=== PATIENT | female | born 1950 | race Caucasian/White ===

== ENCOUNTER 2021-06-11 02:04 | Inpatient (IN) | payer OTHER, SELFPAY ==
[2021-06-11] VITALS (7 sets, daily range): BP systolic 138–169
[~2021-06-11] VITALS: Ht 170.2 cm; Wt 64.9 kg
--- NOTE | 2021-06-11 02:24 | NUR ---
Patient to ER bed 7 to gown for evaluation. Side rails up.
[2021-06-11] MEDS ORDERED: NACL 0.9% 1,000 ML IV ONE (02:30)
--- NOTE | 2021-06-11 02:30 | NUR ---
PATIENT AAOX4 AND AMBULATORY FROM HOME C/O LEFT LOWER ABDOMINAL PAIN WITH CONSTIPATION X 5 DAYS. PATIENT C/O NAUSEA/VOMITING X3 WEB EDITOR. CURRENTLY RAITING 8/10 ON THE PAIN SCALE. VSS. HISTORY OF ARTHRITIS. NO SOB OR CHEST PAIN.
--- NOTE | 2021-06-11 02:32 | NUR ---
ER Dr. GUERIN at bedside examining patient.
[2021-06-11] MEDS ORDERED: ONDANSETRON HCL 4 MG/2 ML VIAL IVP ONE ×2 (02:45→18:50)
[2021-06-11] MEDS ORDERED: KETOROLAC TROMETHAMINE 30 MG VIAL IVP ONE (02:45)
[2021-06-11 03:06] LABS: BASOPHILS # (AUTO) 0.1 K/uL (0.0-0.2); BASOPHILS % (AUTO) 0.6 % (0.0-2.0); EOSINOPHILS # (AUTO) 0.1 K/uL (0.0-0.4); EOSINOPHILS % (AUTO) 1.1 % (0.0-4.0); HEMATOCRIT 42.7 % (36-48); HEMOGLOBIN 14.1 g/dL (12.0-16.0); LYMPHOCYTES % (AUTO) 9.4 % (20.5-51.5); MEAN CORPUSCULAR HEMOGLOBIN 29 pg (27-31); MEAN CORPUSCULAR HGB CONC 33 % (32-36); MEAN CORPUSCULAR VOLUME 88 fL (79.0-98.0); MONOCYTES # (AUTO) 0.6 K/uL (0.0-1.0); MONOCYTES % (AUTO) 5.6 % (1.7-9.3); NEUTROPHILS % (AUTO) 83.3 % (40.0-70.0); PLATELET COUNT (AUTO) 301 K/uL (130-430); RED BLOOD CELL COUNT(AUTO) 4.87 MIL/uL (4.2-6.2); RED CELL DISTRIBUTION WIDTH 13.8 % (9.0-15.0); WHITE BLOOD COUNT (AUTO) 10.9 K/uL (4.8-10.8)
[2021-06-11 03:08] LABS: BILIRUBIN,URINE 1+ (NEGATIVE); BLOOD, URINE 3+ (NEGATIVE); CLARITY/URINE CLEAR (CLEAR); COLOR,URINE YELLOW (YELLOW); GLUCOSE,URINE NEGATIVE (NEGATIVE); KETONES,URINE 1+ (NEGATIVE); LEUKOCYTE ESTERASE ,URINE NEGATIVE (NEGATIVE); NITRITE, URINE NEGATIVE (NEGATIVE); PH,URINE 5.5 (5.0-8.0); PROTEIN URINE TRACE (NEGATIVE); UROBILINOGEN,URINE 0.2 (0.2-1.0)
--- NOTE | 2021-06-11 03:11 | NUR ---
PATIENT TAKEN TO CT SCAN VIA WHEELCHAIR BY RADIOLOGY STAFF.
[2021-06-11 03:16] LABS: CALCIUM 11.1 mg/dL (8.4-11.0); CREATININE 0.66 mg/dL (0.55-1.30); POTASSIUM 4.1 mmol/L (3.5-5.1)
[2021-06-11 03:19] LABS: WBC,URINE 0-3 /HPF (0-3)
[2021-06-11 03:20] LABS: ALBUMIN 4.1 g/dL (3.4-4.8); BACTERIA,URINE FEW /HPF (None Seen); TOTAL BILIRUBIN 0.6 mg/dL (0.0-1.0)
[2021-06-11] MEDS ORDERED: PIPERACILLIN/TAZO 3.375 GM in NS 50 ML IV ONE (04:15)
[2021-06-11] MEDS ORDERED: PIPERACILLIN/TAZOBACTAM 3.375 GM/VIAL (ZOSYN) IV ONE ×2 (04:57→18:50)
[2021-06-11] MEDS ORDERED: ACET-2634 PO (05:00)
--- NOTE | 2021-06-11 05:00 | NUR ---
Patient's code status is FULL CODE paperwork completed and placed in chart.
--- NOTE | 2021-06-11 05:00 | NUR ---
Medication reconciliation completed with information provided by PATIENT . Any prior medication reconciliation on file was reviewed and corrected.
--- NOTE | 2021-06-11 05:01 | NUR ---
BELONGINGS DONE AT THIS TIME WITH PATIENT.
--- NOTE | 2021-06-11 05:10 | NUR ---
Patient will be admitted to care of REJI. Admitted to MED SURG unit. Will go to room 101 B. Belongings list completed. Complete and up to date summary report printed. SBAR report to be given at bedside with opportunity for questions.
--- NOTE | 2021-06-11 06:10 | NUR ---
Patient in bed. Ambulated to the bathroom without difficulty. No complained of pain. Will continue to monitor. Admitted to room 101B. Will continue to monitor.
--- NOTE | 2021-06-11 07:26 | NUR ---
OPENING NOTE Patient resting in the bed. No acute distress. AAO x 4. Denied of pain. Skin warm and dry to touch. SL intact to RAC, no redness, no swelling, patent. Discussed the safety issue, use call light when needs help, and plan of care, verbally understanding. Safety measure maintained. Call light within reached. Bed in low position, side rails up. Refused bed alarm, risk and benefit explained, verbally understanding. Will continue to monitor.
[2021-06-11] MEDS ORDERED: ONDANSETRON HCL 4 MG/2 ML VIAL IVP PRN (08:00)
[2021-06-11] MEDS ORDERED: ALBUTEROL SULFATE 0.083% 2.5 MG/3 ML VIAL.NEB INH PRN (08:00)
[2021-06-11] MEDS ORDERED: NALOXONE HCL 0.4 MG/ML AMP (NARCAN) IVP PRN ×2 (08:00→18:45)
[2021-06-11] MEDS ORDERED: MORPHINE 2 MG/ML INJ. SYRINGE IVP PRN (08:00)
--- NOTE | 2021-06-11 08:11 | NUR ---
SEEN AND EXAMINED BY CHEYANNE ANTONIO WITH ORDER RECEIVED.
--- NOTE | 2021-06-11 09:03 | NUR ---
CONSULTATION PAGED REASON FOR CONSULTATION:APPEN\DICITS WAS CONSULT CALED?Y PERSON WHO WAS NOTIFIED:HARAMN CONSULTING PHYSICIAN:EDUARDO ADAM MANAGER SURGICAL SPECIALTY:SURGEON MANAGER SURGICAL PHONE [phone]: REQUESTING PHYSICIAN:EULALIO CORTES
--- NOTE | 2021-06-11 09:24 | NUR ---
RECEIVED THE CALL FROM SURGERY, KAREN. PER DR. ALBERT JONES WILL DO THE SURGERY AT 1730 AND KEEP THE PATIENT NPO.
[2021-06-11] MEDS: NACL 0.9% 1,000 ML IV SCH ×2 (10:05→23:18)
[2021-06-11] MEDS: PIPERACILLIN/TAZO 3.375/DEX-IS 50 ML IV SCH ×3 (10:05→23:18)
[2021-06-11 10:25] LABS: BASOPHILS % (AUTO) 0.6 % (0.0-2.0); EOSINOPHILS # (AUTO) 0.1 K/uL (0.0-0.4); EOSINOPHILS % (AUTO) 1.1 % (0.0-4.0); HEMOGLOBIN 13.3 g/dL (12.0-16.0); LYMPHOCYTES # (AUTO) 1.2 K/uL (1.0-5.5); LYMPHOCYTES % (AUTO) 17.5 % (20.5-51.5); MEAN CORPUSCULAR HEMOGLOBIN 29 pg (27-31); MEAN CORPUSCULAR HGB CONC 33 % (32-36); MEAN CORPUSCULAR VOLUME 88 fL (79.0-98.0); MONOCYTES # (AUTO) 0.5 K/uL (0.0-1.0); MONOCYTES % (AUTO) 7.7 % (1.7-9.3); NEUTROPHILS # (AUTO) 5.1 K/uL (1.8-7.7); NEUTROPHILS % (AUTO) 73.1 % (40.0-70.0); PLATELET COUNT (AUTO) 281 K/uL (130-430); RED BLOOD CELL COUNT(AUTO) 4.64 MIL/uL (4.2-6.2); RED CELL DISTRIBUTION WIDTH 13.9 % (9.0-15.0)
[2021-06-11 10:44] LABS: PROTHROMBIN TIME 10.1 SECS (9.5-12.5)
[2021-06-11 10:45] LABS: ALBUMIN 3.5 g/dL (3.4-4.8); CALCIUM 10.8 mg/dL (8.4-11.0); CREATININE 0.69 mg/dL (0.55-1.30); POTASSIUM 4.3 mmol/L (3.5-5.1); TOTAL BILIRUBIN 0.6 mg/dL (0.0-1.0)
--- NOTE | 2021-06-11 13:21 | NUR ---
IV RE-INSERTION: Complaining of pain to IV site. Restarted on LFA, gauge 22 with good blood return. Flushed 5ml NS. Successful after 2 attempts. Tolerated procedure well. Resumed current IVF of NS and regulated @ 125ml/hr. Will observe for any signs of infiltration.
--- NOTE | 2021-06-11 15:41 | NUR ---
MRSA OF [facility] SAMPLE SENT TO LAB.
--- NOTE | 2021-06-11 18:05 | NUR ---
SEEN AND EXAMINED EDUARDO MARTINEZ WITH ORDER RECEIVED.
[2021-06-11] MEDS ORDERED: METOCLOPRAMIDE HCL 10 MG/2 ML VIAL IVP PRN (18:45)
[2021-06-11] MEDS ORDERED: KETOROLAC TROMETHAMINE 30 MG VIAL IVP PRN (18:45)
[2021-06-11] MEDS ORDERED: LR 1,000 ML IV.SOLN IV ONE (18:50)
[2021-06-11] MEDS ORDERED: MIDAZOLAM HCL 5 MG/5 ML VIAL IVP ONE (18:50)
[2021-06-11] MEDS ORDERED: NS IRRIG SOLN 1000 ML IR ONE (18:50)
[2021-06-11] MEDS ORDERED: PHENYLEPHRINE HCL 10 MG/ML VIAL (NEOSYNEPHRINE) IV ONE (18:50)
[2021-06-11] MEDS ORDERED: PROPOFOL 200MG/ 20ML VIAL (DIPRIVAN) IV ONE (18:50)
[2021-06-11] MEDS ORDERED: ROCURONIUM BROMIDE 10 MG/ML (ZEMURON) IV ONE (18:50)
[2021-06-11] MEDS ORDERED: fentaNYL CITRATE/PF 100 MCG/2 ML AMP IVP ONE (18:50)
[2021-06-11] MEDS ORDERED: BUPIVACAINE /EPINEPHRINE/PF 0.25% 30 ML VIAL INJ ONE (18:50)
[2021-06-11] MEDS ORDERED: NS 1000 ML IV.SOLN IV ONE (18:50)
[2021-06-11] MEDS ORDERED: SUCCINYLCHOLINE CHLORIDE 20 MG/ML(QUELICIN) IVP ONE (18:50)
[2021-06-11] MEDS ORDERED: GLYCOPYRROLATE 0.2 MG/ML VIAL IJ ONE (18:50)
--- NOTE | 2021-06-11 18:50 | NUR ---
PATIENT OFF UNIT OT OR VIA BED IN STABLE CONDITION.
[2021-06-11] MEDS ORDERED: hydrALAZINE HCL 20 MG/ML VIAL IVP PRN (20:30)
[2021-06-11] MEDS: HYDROmorphone 1 MG/ML INJ. CARTRIDGE IVP PRN ×2 (20:40→20:50)
[2021-06-11] MEDS ORDERED: HYDROmorphone 1 MG/ML INJ. CARTRIDGE ONE (20:41)
--- NOTE | 2021-06-11 21:00 | NUR ---
pt.return to the unit;s/p surgery;lap appendectomy per .pt.presents abdomen incisions x3 lourdes-moore APPLIED. incisions approximated.no c/o pain,nausea.diet has been ordered:soft.juice/ice chips provided.iv access intact iv fluids infusing. v/s initiated per protocol;s/p surgery.pt.repositioned.call light/telephone placed w/in access of the pt. Addendum: 06/12/21 at 0308 by Kapil Voss RN note o2-sat%=92%@room air.incentive spirometer w/in access of the pt.
--- NOTE | 2021-06-11 22:00 | NUR ---
pt.assessed.presents quiescent affect;resting.iv access intact.pt.assessed for cleanliness.pt.repositioned.pt.had requested juice/ice chips;provided.iv access intact iv fluid infusing.v/s assessed wnl:note 02-sat%92%.pt.re-iterated to perform the breathing excersises w w/out incentive spirometer.call light/telephone placed w/in access of the pt.
[2021-06-11] MEDS: ACETAMINOPHEN 325 MG TABLET PO PRN (23:17)
--- NOTE | 2021-06-12 | NUR ---
pt.assessed.v/s assessed values wnl.no c/o pain,nausea.no requests [email or web address] access IntaCt;IV FlUIDS INFuSiNG. I HAve ADMInisTEred ZOSYN ABX IVPB MIDNIGHt DoSE.pt.assessed for cleanliness pt.repositioned.call light/telephone placed w/in access of the pt.
--- NOTE | 2021-06-12 01:00 | NUR ---
pt.requested medication;pain.i have administered morphine;4mg per pain level status.to assess the efficacy of the pain medication per pain mgx protocol.pt.had requested ice chips.provided.
[2021-06-12] MEDS: MORPHINE 4 MG INJ. 4 MG/ML VIAL IVP PRN ×2 (01:07→05:21)
--- NOTE | 2021-06-12 02:00 | NUR ---
pt.assessed.pt.presents quiescent affect;somnolent.per flacc pt.absent facial grimaces/body posturing.iv access intact iv fluids infusing.pt.assessed for cleanliness pt.repositioned.call light/telephone placed w/in access of the pt.
--- NOTE | 2021-06-12 04:00 | NUR ---
pt.assESSEd.pt.PRESENTS quiescent affect;calm,somnolent.iv access intact iv fluids infusing.per flacc pain mgx pt.absent facial grimaces/body posturing. pt.assessed for cleanliness.pt.repositioned.call light/telephone placed w/in access of the pt.
--- NOTE | 2021-06-12 05:00 | NUR ---
pt.assisted to the restroom per dave;staff analyst.gait assessed steady wnl.pt.assisted return to bed repositioned.pt.had requested medication;pain.i have administered morphine:4mg ivp.to assess the efficacy of the pain medication per pain mgx protocol.pt. requested cup ice chips provided per dave;staff analyst.incisions x3 assessed approximated;absent dehiescense/drainage/call light/telephone placed w/in access of the pt.
[2021-06-12] MEDS: PIPERACILLIN/TAZO 3.375/DEX-IS 50 ML IV SCH ×4 (05:13→22:06)
[2021-06-12 06:50] LABS: BASOPHILS % (AUTO) 0.5 % (0.0-2.0); EOSINOPHILS # (AUTO) 0.1 K/uL (0.0-0.4); EOSINOPHILS % (AUTO) 1.1 % (0.0-4.0); HEMATOCRIT 38.1 % (36-48); HEMOGLOBIN 12.4 g/dL (12.0-16.0); LYMPHOCYTES # (AUTO) 1.2 K/uL (1.0-5.5); LYMPHOCYTES % (AUTO) 18.9 % (20.5-51.5); MEAN CORPUSCULAR HEMOGLOBIN 29 pg (27-31); MEAN CORPUSCULAR HGB CONC 32 % (32-36); MEAN CORPUSCULAR VOLUME 89 fL (79.0-98.0); MONOCYTES # (AUTO) 0.5 K/uL (0.0-1.0); MONOCYTES % (AUTO) 8.5 % (1.7-9.3); NEUTROPHILS # (AUTO) 4.4 K/uL (1.8-7.7); PLATELET COUNT (AUTO) 269 K/uL (130-430); RED BLOOD CELL COUNT(AUTO) 4.28 MIL/uL (4.2-6.2); RED CELL DISTRIBUTION WIDTH 13.7 % (9.0-15.0); WHITE BLOOD COUNT (AUTO) 6.2 K/uL (4.8-10.8)
[2021-06-12 07:21] LABS: ALBUMIN 3.2 g/dL (3.4-4.8); CALCIUM 10.3 mg/dL (8.4-11.0); CREATININE 0.74 mg/dL (0.55-1.30); POTASSIUM 4.6 mmol/L (3.5-5.1); TOTAL BILIRUBIN 0.5 mg/dL (0.0-1.0)
[2021-06-12 08:00] VITALS: BP_SYST 124
[2021-06-12] MEDS: NACL 0.9% 1,000 ML IV SCH ×3 (08:00→16:00)
--- NOTE | 2021-06-12 09:04 | NUR ---
ATTEDNING MD DR MENDOZA WAS CALLED, RE: PAIN MEDICATION. SPOKE TO MAUREEN.
[2021-06-12] MEDS ORDERED: HYDROcodone/ACETAMIN 10-325 MG TAB PO ONE (09:15)
[2021-06-12] MEDS ORDERED: NALOXONE HCL 0.4 MG/ML AMP (NARCAN) IVP PRN (09:15)
--- NOTE | 2021-06-12 09:15 | NUR ---
HIGH ALERT NOTE: Called Dr. MENDOZA back at identified within the medical roster to verify physician authenticity.
--- NOTE | 2021-06-12 09:27 | NUR ---
Nutrition Update Alfredo Scale 18 noted. Pt admitted for appendicitis. Diet: soft (low fiber/bland) BMI: 22.4 kg/m2 RD to follow per nutrition care standards.
--- NOTE | 2021-06-12 12:00 | NUR ---
Note Pt encouraged to get OOB and ambulate in room. Pt encouraged to use IS q1' 10X while awake. Dr Vanessa was on the floor at 0955am to assess pt and check labs/tests. Call light within reach. Pt's 3 small lap sites intact with Dermabond.
[2021-06-12 12:18] VITALS: BP_SYST 118
--- NOTE | 2021-06-12 14:15 | NUR ---
Note Called Dr Alvarez per pt's request.
[2021-06-12 16:05] VITALS: BP_SYST 130
[2021-06-12] MEDS: ACETAMINOPHEN 325 MG TABLET PO PRN ×2 (16:37→22:16)
--- NOTE | 2021-06-12 16:55 | NUR ---
Note Called Dr Price again for discharge. Pt wants to leave tomorrow as she is still in pain and has no one to pick her up till till tomorrow. Addendum: 06/12/21 at 1706 by Jane Wan RN DR PRICE PUT A HOLD ON DISCHARGE TILL TOMORROW.
--- NOTE | 2021-06-12 18:25 | NUR ---
Note Pt sitting up in bed eating her dinner. Pain tolerable at this time. Pt was checked on q1' and PRN all shift for needs and care. 3 small lap sites intact with Dermabond. Pt's bed in low position and call light within reach all shift. Pt maintained with safety precautions all shift. Call light within reach. Pt ambulated throughout the shift in room and to restroom independently. No needs noted at this time.
--- NOTE | 2021-06-12 19:10 | NUR ---
OPENING NOTES RECEIVED PATIENT RESTING IN BED, NO SIGNS OF DISTRESS NOTED. CALL LIGHT WITHIN REACH, PATIENT DEMONSTRATES PROPER CALL LIGHT USAGE, BED AT LOWEST POSITION, BED ALARM REFUSED AFTER EXPLAINING RISK FOR FALLS, BED LOCKED. RECEIVED REPORT THAT PATIENT WISHES TO STAY ONE NIGHT, MD AWARE. FALL, ASPIRATION, SAFETY, AND RESPIRATORY PRECAUTIONS IN PLACE. WILL CONTINUE TO MONITOR.
[2021-06-12 20:00] VITALS: BP_SYST 133
[2021-06-13] MEDS: NACL 0.9% 1,000 ML IV SCH
[2021-06-13 00:04] VITALS: BP_SYST 149
--- NOTE | 2021-06-13 02:00 | NUR ---
PATIENT RESTING, NO SIGNS OF DISTRESS NOTED. WILL CONTINUE TO MONITOR.
[2021-06-13] MEDS: PIPERACILLIN/TAZO 3.375/DEX-IS 50 ML IV SCH (06:06)
--- NOTE | 2021-06-13 06:10 | NUR ---
IV RE-INSERTION: Complaining of pain to IV site. Restarted on LEFT FOREARM. Will observe for any signs of infiltration.
--- NOTE | 2021-06-13 06:37 | NUR ---
CLOSING NOTES PATIENT RESTING IN BED, NO SIGNS OF DISTRESS NOTED. CALL LIGHT WITHIN REACH, PATIENT DEMONSTRATES PROPER CALL LIGHT USAGE, BED AT LOWEST POSITION, BED ALARM REFUSED AFTER EXPLAINING RISK FOR FALLS, BED LOCKED. FALL, ASPIRATION, SAFETY, AND RESPIRATORY PRECAUTIONS IN PLACE. ALL NEEDS MET THROUGHOUT SHIFT. WILL ENDORSE CARE TO ONCOMING SHIFT.
[2021-06-13 08:00] VITALS: BP_SYST 139
[2021-06-13 12:14] VITALS: BP_SYST 140
[2021-06-13] MEDS: ACETAMINOPHEN 325 MG TABLET PO PRN (12:27)
[2021-06-13 15:11] VITALS: BP_SYST 158
[2021-06-13 15:21] VITALS: BP_SYST 158
--- NOTE | 2021-06-13 17:15 | NUR ---
closing notes pt was discharged .denies pain .was wheeled outside via wheelchair. no sob noted. seen by gil this morning. instructed re follow up appt with dr yao and primary md. incision on the abdomen intact with derma moore . looks dry and clean. ivl and id band removed.
== END 2021-06-13 17:15 | disposition home or self-care (01) | DRG 343 ==
LOC: SED 02:04 → SMU 04:32
PROVIDERS: ADMIT Internal Medicine Hospice and Palliative Medicine; ATTEND Internal Medicine Hospice and Palliative Medicine
PROC: 0DTJ4ZZ Resection of Appendix, Percutaneous Endoscopic Approach (ICD-10-PCS; principal; 2021-06-11 18:50)
DX: K35.80 Unspecified acute appendicitis (principal); Z20.822 Contact with and (suspected) exposure to COVID-19; Z88.8 Allergy status to other drugs, medicaments and biological substances; Z79.899 Other long term (current) drug therapy; Z82.0 Family history of epilepsy and other diseases of the nervous system
CPT/HCPCS: 36415; 71045; 76376; 80053; 81000; 83690; 85025; 85610-TC; 87081; 88304; 93005; 93306; 96361; 96365; 96375; 99285; C1727; J0330; J1170; J1885; J2250; J2270; J2370; J2405; J2543; J2704; J3010; J3490; J7030; J7120